=== PATIENT | female | born 1975 | race Caucasian/White ===

== ENCOUNTER 2018-02-20 16:40 | Emergency (ER) | payer OTHER ==
[2018-02-20] MEDS ORDERED: SODIUM CHLORIDE 1,000 ML IV STA (16:51)
--- NOTE | 2018-02-20 16:51 | PDOC ---
Rapid Medical Evaluation Time Seen by Provider: 02/20/18 16:48 Medical Evaluation: 02/20/18 16:49 I have performed a brief in-person evaluation of this patient. The patient presents with a chief complaint of: abdominal pain Pertinent physical exam findings: periumbilical tenderness I have ordered the following: labs, urine, CTAP The patient will proceed to the ED for further evaluation. Discharge Disposition - Diagnosis Abdominal pain - Referrals - Patient Instructions - Post Discharge Activity
[2018-02-20 16:52] VITALS: TEMP 98; BMI 25.7
[2018-02-20 18:11] LABS: BASO % 0.5 % (0-2.0); EOS % 1.1 % (0-4.5); HEMATOCRIT 36.3 % (32.4-45.2); HEMOGLOBIN 12.6 GM/dL (10.7-15.3); LYMPH % 52.2 % (8-40); MCH 28.8 pg (25.7-33.7); MCHC 34.6 g/dl (32.0-36.0); MEAN CELL VOLUME 83.2 fl (80-96); MEAN PLT VOLUME 8.2 fl (7.5-11.1); MONO % 7.4 % (3.8-10.2); NEUT % 38.8 % (42.8-82.8); PLATELET COUNT 362 K/MM3 (134-434); RBC 4.36 M/mm3 (3.60-5.2); RDW 14.9 % (11.6-15.6); WHITE BLOOD COUNT 7.3 K/mm3 (4.0-10.0)
[2018-02-20 18:32] LABS: ALBUMIN 3.6 g/dl (3.4-5.0); ALK PHOS 78 U/L (45-117); ANION GAP 6 MMOL/L (8-16); BILIRUBIN,TOTAL 0.2 mg/dL (0.2-1); BLOOD UREA NITROGEN 17 mg/dL (7-18); CALCIUM 8.8 mg/dL (8.5-10.1); CHLORIDE 102 mmol/L (98-107); CO2 28 mmol/L (21-32); CREATININE 0.9 mg/dL (0.55-1.3); GLUCOSE,RANDOM 97 mg/dL (74-106); LIPASE 176 U/L (73-393); POTASSIUM 3.9 mmol/L (3.5-5.1); SGOT/AST 23 U/L (15-37); SGPT/ALT 23 U/L (13-61); SODIUM 136 mmol/L (136-145); TOT PROT 7.6 g/dl (6.4-8.2)
[2018-02-20 18:37] LABS: HCG,QUALITATIVE URINE Negative; URINE APPEARANCE CLEAR; URINE BILIRUBIN NEGATIVE (<2.0 mg/dL); URINE COLOR LTYELLOW; URINE GLUCOSE (UA) NEGATIVE (NEGATIVE); URINE KETONE NEGATIVE (NEGATIVE); URINE LEUK ESTERASE NEGATIVE (NEGATIVE); URINE NITRITE NEGATIVE (NEGATIVE); URINE PROTEIN NEGATIVE (NEGATIVE); URINE UROBILINOGEN NEGATIVE mg/dL (0.2-1.0)
--- NOTE | 2018-02-20 20:35 | PDOC ---
History of Present Illness - General Chief Complaint: Pain Stated Complaint: STOMACH PAIN Time Seen by Provider: 02/20/18 16:48 - History of Present Illness Initial Comments: 02/20/18 20:33 42 yo F with no significant pmh who p/w with epigastric abdominal pain, and left sided chest pain. Patient reports 1 week of epigastria pain, and "bloating, " sensation, aggravated with PO intake. States that pain is pressure type, and radiates to RUQ, and L sided chest. No identifiable alleviators. endorses one episode of bilious, non bloody emesis yesterday evening. Denies OTC symptom control. Normal bowel habits. LMP x 5 days ago. Denies recent travel or sick contacts. H/o "tummy tuck," procedure x 1 year in [facility]. Does not f /w GI. Patient denies Palpitations, leg pain, F/C, SOB, urinary complaints, diarrhea, constipation, BPR, hematuria, pelivc pain, vaginal discharge, lightheadedness, weakness, sensory changes. PMHx: as noted above. Denies h/o ACS, stent placement, stress testing, endoscopy. ROS: as noted SHx: Social Etoh. denies tobacco use or IVDA. Allergies: NKDA Past History - Past Medical History Allergies/Adverse Reactions: Allergies Allergy/AdvReac Type Severity Reaction Status Date / Time No Known Allergies Allergy Verified 02/20/18 16:52 Home Medications: Ambulatory Orders Ranitidine [Zantac -] 150 mg PO BID #30 tablet 02/21/18 COPD: No - Suicide/Smoking/Psychosocial Hx Smoking History: Never smoked Review of Systems - Review of Systems Comments:: 02/20/18 20:34 GENERAL/CONSTITUTIONAL: No fever or chills. No weakness. HEAD, EYES, EARS, NOSE AND THROAT: No change in vision. No ear pain or discharge. No sore throat. CARDIOVASCULAR: No chest pain or shortness of breath RESPIRATORY: No cough, wheezing, or hemoptysis. GASTROINTESTINAL: + abdominal pain, nausea, vomiting. No diarrhea or constipation. GENITOURINARY: No dysuria, frequency, or change in urination. MUSCULOSKELETAL: No joint or muscle swelling or pain. No neck or back pain. SKIN: No rash NEUROLOGIC: No headache, vertigo, loss of consciousness, or change in strength/ sensation. ENDOCRINE: No increased thirst. No abnormal weight change HEMATOLOGIC/LYMPHATIC: No anemia, easy bleeding, or history of blood clots. ALLERGIC/IMMUNOLOGIC: No hives or skin allergy. *Physical Exam - Vital Signs Last Vital Signs Temp Pulse Resp BP Pulse Ox 98.0 F 71 18 119/69 100 02/20/18 16:49 02/20/18 16:49 02/20/18 16:49 02/20/18 16:49 02/20/18 16:49 - Physical Exam Comments: 02/20/18 20:33 GENERAL: Awake, alert, and fully oriented, in no acute distress HEAD: No signs of trauma, normocephalic, atraumatic EYES: PERRLA, EOMI, sclera anicteric, conjunctiva clear ENT:Hearing grossly normal, nares patent, oropharynx clear without exudates. Moist mucosa NECK: Normal ROM, supple, no lymphadenopathy, JVD, or masses LUNGS: No distress, speaks full sentences, clear to auscultation bilaterally HEART: Regular rate and rhythm, normal S1 and S2, no murmurs, rubs or gallops, peripheral pulses normal and equal bilaterally. ABDOMEN: + Epigastric ttp, and RUQ ttp. Soft, normoactive bowel sounds. No guarding, no rebound. No masses. Neg CVA ttp. EXTREMITIES : Normal inspection, Normal range of motion, no edema. No clubbing or cyanosis. SKIN: Warm, Dry, normal turgor, no rashes or lesions noted Moderate Sedation - Procedure Monitoring Vital Signs: Procedure Monitoring Vital Signs Temperature 98.0 F 02/20/18 16:49 Pulse Rate 71 02/20/18 16:49 Respiratory Rate 18 02/20/18 16:49 Blood Pressure 119/69 02/20/18 16:49 O2 Sat by Pulse Oximetry (%) 100 02/20/18 16:49 ED Treatment Course - LABORATORY CBC & Chemistry Diagram: 02/20/18 18:00 02/20/18 18:00 - ADDITIONAL ORDERS Additional order review: Laboratory Results 02/20/18 02/20/18 02/20/18 18:16 18:16 18:00 Sodium 136 Potassium 3.9 Chloride 102 Carbon Dioxide 28 Anion Gap 6 L BUN 17 Creatinine 0.9 Creat Clearance w eGFR > 60 Random Glucose 97 Calcium 8.8 Total Bilirubin 0.2 AST 23 ALT 23 Alkaline Phosphatase 78 Total Protein 7.6 Albumin 3.6 Lipase 176 Urine Color Ltyellow Urine Appearance Clear Urine pH 6.0 Ur Specific [place] 1.025 Urine Protein Negative Urine Glucose (UA) Negative Urine Ketones Negative Urine Blood Negative Urine Nitrite Negative Urine Bilirubin Negative Urine Urobilinogen Negative Ur Leukocyte Esterase Negative Urine HCG, Qual Cancelled Negative 02/20/18 18:00 RBC 4.36 MCV 83.2 MCHC 34.6 RDW 14.9 MPV 8.2 Neutrophils % 38.8 L Lymphocytes % 52.2 H Monocytes % 7.4 Eosinophils % 1.1 Basophils % 0.5 - Medications Given in the ED: ED Medications Discontinued Medications Generic Name Dose Route Start Last Admin Trade Name Freq PRN Reason Stop Dose Admin Sodium Chloride 1,000 mls @ 1,000 mls/hr 02/20/18 16:51 02/20/18 18:08 Normal Saline - IV 02/20/18 17:50 1,000 mls/hr ASDIR STA Administration Medical Decision Making - Medical Decision Making 02/20/18 21:42 42 yo F with no significant pmh who p/w with epigastric abdominal pain, and left sided chest pain. VSS, AF, + RUQ ttp, and epigatsirc ttp. ACS/IA r/o. s/s likely d/t dyspepsia 2/2 gastritis vs. esophagitis. will consider gastroenteirtis, biliary dz. pancreatitis. Low suspicion colitis, AAA, Ao dissection, ovarian pathology, pyelonephritis. Pain control, hydration, reassess. Ed Course: CBC,CMP, HCG, UA Maloox, Carafate, NS 02/20/18 21:48 CBC, CMP: Unremarkable HCG: neg UA: Neg Ranitidine sent to pharmacy. 02/20/18 22:46 EKG: NSR with absent acute DEIRDRE, STD. No acute DEIRDRE, STD. Normal interval duration and axis. 02/21/18 00:02 RUQ U/S: Unremarkable Patient s/s improved. Stable for d/c with return precautions. Advised to f/u with GI. Ranitidine sent to pharm. *DC/Admit/Observation/Transfer Diagnosis at time of Disposition: Abdominal pain Qualifiers: Abdominal location: epigastric Qualified Code(s): R10.13 - Epigastric pain - Discharge Dispostion Condition at time of disposition: Stable Decision to Admit order: No - Referrals Referrals: Elio Del Angel MD [Staff Physician] - - Patient Instructions Printed Discharge Instructions: DI for Epigastric Pain Additional Instructions: Please return to the emergency department with any new or worsening symptoms or concerns. Please follow up with your primary care physician within 72 hours. Please follow up with gastroenterology within one week. Take Ranitidine as needed for pain. - Post Discharge Activity - Attestations Physician Attestion: 02/20/18 20:34 I attest to the information provided in this note.
[2018-02-20] MEDS ORDERED: ONDANSETRON 4 MG/2 ML VIAL IVPUSH ONE (21:40)
[2018-02-20] MEDS ORDERED: SODIUM CHLORIDE 500 ML IV STA (21:40)
[2018-02-20] MEDS ORDERED: MAG HYDROX/AL HYDROX/SIMETH 30 ML UNIT-DOSE CUP PO ONE (21:40)
[2018-02-20] MEDS ORDERED: FAMOTIDINE 20 MG/50 ML IVPB 20 MG/50 ML MG IVPB ONE ×2 (21:40→21:52)
[2018-02-20] MEDS ORDERED: MAG HYDROX/AL HYDROX/SIMETH 30 ML UNIT-DOSE CUP ONE (21:51)
[2018-02-20] MEDS ORDERED: ONDANSETRON 4 MG/2 ML VIAL ONE (21:52)
--- NOTE | 2018-02-20 22:00 | PDOC ---
Attending Attestation - HPI HPI: 02/20/18 23:14 Patient is a 42 year old female with no significant past medical history who presents to the ED with complaints of epigastric abdominal pain that began x1 week ago. Patient reports experiencing epigastric abdominal pain that has gradually increased in intensity over time, prompting her to come into the ED for further evaluation. She reports experiencing associated symptoms of nausea , and vomiting that began earlier this afternoon. Patient reports abdominal pain feels like a bloating sensation, that has begun to radiate to her left chest. Denies chest pain, Sob. Denies nausea, vomiting. Denies fevers, chills. Denies contact with sick individuals, out of state travelling.. Denies dysuria, hematuria. Denies diarrhea, constipation. Denies trauma to affected area. Denies any other symptoms. Allergies: None Social history: No smoking. No alcohol. No illicit drugs. Surgical history: None PMD: None <Sanket Earl - Last Filed: 02/20/18 23:14> - Resident Resident Name: Nick Lubin - ED Attending Attestation I have performed the following: I have examined & evaluated the patient, The case was reviewed & discussed with the resident, I agree w/resident's findings & plan, Exceptions are as noted - Physicial Exam PE: 02/21/18 03:42 Agree with exam as documented by resident Well appearing, focal abd tenderness, epigastric and RUQ, no guarding, no rebound - Medical Decision Making 02/21/18 03:44 abd px and n/v consider gastritis vs lou? f/u labs, abd us dispo per clinical course 02/21/18 03:44 Labs wnl, US neg for acute pathology dc <Neeraj Decker - Last Filed: 02/21/18 03:45>
[2018-02-21 00:34] VITALS: BP 124/78; PULSE 74
--- NOTE | 2018-02-21 11:59 | EKG ---
Test Reason : Blood Pressure : / mmHG Vent. Rate : 075 BPM Atrial Rate : 075 BPM P-R Int : 164 ms QRS Dur : 086 ms QT Int : 406 ms P-R-T Axes : 067 061 060 degrees QTc Int : 453 ms NORMAL SINUS RHYTHM POSSIBLE LEFT ATRIAL ENLARGEMENT CANNOT RULE OUT ANTERIOR INFARCT , AGE UNDETERMINED ABNORMAL ECG NO PREVIOUS ECGS AVAILABLE Confirmed by ALE SPICER MD ([id number]) on 02/21/2018 11:59:08 AM Referred By: Confirmed By:ALE SPICER MD
== END 2018-02-21 00:33 | disposition home or self-care (01) ==
LOC: JER 16:40
PROC: 3E033GC Introduction of Other Therapeutic Substance into Peripheral Vein, Percutaneous Approach (ICD-10-PCS; principal; 2018-02-20)
PROC: 3E0337Z Introduction of Electrolytic and Water Balance Substance into Peripheral Vein, Percutaneous Approach (ICD-10-PCS; 2018-02-20)
DX: R10.13 Epigastric pain (principal)
CPT/HCPCS: 36415; 76705-TC; 80053; 81003; 83690; 84703; 85025; 87086; 93005; 93010; 99283-25; J7030